=== PATIENT | female | born 1935 | race Hispanic/Latino ===

== ENCOUNTER 2017-07-30 16:11 | Inpatient (IN) | payer SELFPAY ==
[2017-07-30 17:05] LABS: Urine Blood TRACE (NEG); Urine Glucose NEGATIVE (NEG); Urine Protein NEGATIVE (NEG); Urine Specific Gravity 1.015 (1.005-1.030); Urine pH 7.5 (5.0-7.0)
[2017-07-30 17:18] LABS: Absolute Lymphocytes (CBC) 1.2 K/uL (0.7-4.9); Absolute Monocytes 0.6 K/uL (0.1-1.3); Absolute Neutrophil 5.2 K/uL (1.8-8.0); Eosinophils % 1.6 % (0-4.4); Hematocrit 37.2 % (36.0-45.0); Lymphocytes % 16.6 % (15.3-44.8); MCH 30.5 pg (27.0-35.0); MCV 90.6 fL (80-100); MPV 8.8 fL (7.6-11.3); Monocytes % 8.5 % (3.3-12.3); RBC Red Blood Cell Count 4.11 M/uL (3.86-4.86)
[2017-07-30 17:24] LABS: Protime INR 0.98
[2017-07-30 17:28] LABS: Potassium 3.8 mEq/L (3.6-5.0)
[2017-07-30 17:34] LABS: Albumin 4.3 g/dL (3.2-5.5); Bilirubin Direct 0.1 mg/dL (0-0.2); Bilirubin Total 0.3 mg/dL (0.3-1.2); Magnesium 1.7 mg/dL (1.8-2.5); Protein, Total 7.1 g/dL (6.0-8.3)
[2017-07-30 17:53] LABS: Urine Bacteria LOADED /HPF (<20); Urine Culture Reflex Order REFLEXED; Urine RBC <5 /HPF (NONE SEEN)
[2017-07-30] MEDS ORDERED: NA CHLORIDE 0.9% 50 ML IV ONE (17:58)
[2017-07-30] MEDS ORDERED: CEFTRIAXONE/SWI 1gm 1 GM/10 ML SYR ONE (17:58)
[2017-07-30] MEDS ORDERED: ACETAMINOPHEN 325 MG TABLET ONE (18:14)
--- NOTE | 2017-07-30 18:21 | ER ---
Nurse's Notes [facility] Name: Augustina Bonds Age: 82 yrs Sex: Female : 1935 Arrival Date: 07/30/2017 Time: 16:15 Bed 24 Private MD: Diagnosis: Complicated UTI;Syncope Presentation: 07/30 16:15 Presenting complaint: EMS states: Patient reports that she got up about an hour ago and kr2 felt weak and dizzy. She walked to the bathroom and after getting up from the toilet, felt weaker and dizzier. When walking from the bathroom to the kitchen she says she passed out. She was very anxious when we arrived. EKG showed normal sinus rhythm, blood pressure 160/69, pulse 80. Blood glucose 169. Oxygen saturation 100% on 2 LPM via NC. Transition of care: patient was not received from another setting of care. Onset of symptoms was July 30, 2017 at 15:15. Initial Sepsis Screen: Does the patient meet any 2 criteria? No. Patient's initial sepsis screen is negative. Does the patient have a suspected source of infection? No. Patient's initial sepsis screen is negative. Care prior to arrival: IV initiated. 20 GA, in the left antecubital area, Glucose check: 169 Oxygen administered. via nasal cannula. 16:15 Method Of Arrival: EMS: [facility] kr2 16:15 Acuity: JASON 3 kr2 Triage Assessment: 16:33 General: Appears in no apparent distress. comfortable, well groomed, well developed, kr2 well nourished, Behavior is calm, cooperative. Pain: Denies pain. Historical: - Allergies: 16:33 No Known Allergies; kr2 - Home Meds: 16:33 None [Active]; kr2 - PMHx: 16:33 None; kr2 - PSHx: 16:33 None; kr2 - Immunization history:: Adult Immunizations unknown. - Social history:: Smoking status: Patient/guardian denies using tobacco. Screenin:33 Abuse screen: Denies threats or abuse. Denies injuries from another. Nutritional kr2 screening: No deficits noted. Tuberculosis screening: No symptoms or risk factors identified. Fall Risk Fall in past 12 months (25 points). IV access (20 points). Assessment: 16:15 General: Appears in no apparent distress. comfortable, well groomed, well developed, kr2 well nourished, Behavior is calm, cooperative. Pain: Denies pain. Neuro: Level of Consciousness is awake, alert, obeys commands, Oriented to person, place, time, situation, Enterprise Security Architect are equal bilaterally Moves all extremities. Speech is normal, Facial symmetry appears normal, Facial symmetry: tongue is midline, Pupils are PERRLA, Intact Reports dizziness, since This afternoon. Cardiovascular: Reports fatigue, lightheadedness, syncope, Denies chest pain, Capillary refill < 3 seconds in bilateral fingers Patient's skin is warm and dry. Rhythm is sinus rhythm. Respiratory: Airway is patent Respiratory effort is even, unlabored, Respiratory pattern is regular, symmetrical. GI: Abdomen is flat, non-distended. : Denies burning with urination. EENT: Oral mucosa is dry. Derm: Skin is intact, with poor turgor Skin is pink, warm \\T\\ dry. Musculoskeletal: Circulation, motion, and sensation intact. 17:00 Reassessment: Patient appears in no apparent distress at this time. Patient and/or kr2 family updated on plan of care and expected duration. Pain level reassessed. Patient is alert, oriented x 3, equal unlabored respirations, skin warm/dry/pink. Patient denies pain at this time. 18:18 Reassessment: Patient appears in no apparent distress at this time. Patient and/or kr2 family updated on plan of care and expected duration. Pain level reassessed. Patient is alert, oriented x 3, equal unlabored respirations, skin warm/dry/pink. Patient reports she has "a little bit of a headache" Dr. Montejo notified, Tylenol given as ordered. 19:00 Reassessment: Patient appears in no apparent distress at this time. Patient and/or kr2 family updated on plan of care and expected duration. Pain level reassessed. Patient is alert, oriented x 3, equal unlabored respirations, skin warm/dry/pink. 20:08 Reassessment: Patient appears in no apparent distress at this time. Patient and/or kr2 family updated on plan of care and expected duration. Pain level reassessed. Patient is alert, oriented x 3, equal unlabored respirations, skin warm/dry/pink. States headache is gone Patient denies pain at this time. Vital Signs: 16:15 BP 158 / 78; Pulse 68; Resp 19; Temp 97.9(O); Pulse Ox 100% on R/A; Weight 54.43 kg; ss Pain 0/10; 17:32 BP 148 / 67 Supine; Pulse 70; kr2 17:33 BP 160 / 74 Standing; Pulse 80; kr2 17:33 BP 145 / 71 Sitting; Pulse 70; kr2 18:39 BP 133 / 78; Pulse 67; Resp 16; Pulse Ox 100% on R/A; kr2 20:10 BP 122 / 72; Pulse 67; Resp 19; Pulse Ox 97% on R/A; kr2 21:16 BP 126 / 73; Pulse 60; Resp 15; Temp 98.7(O); Pulse Ox 100% on R/A; kr2 17:33 Reports feeling very weak upon standing kr2 Vitals: 18:39 Cardiac Rhythm Assessment Regular Sinus rhythm. kr2 ED Course: 16:15 Patient arrived in ED. ss 16:15 Arm band placed on right wrist. ss 16:15 Patient has correct armband on for positive identification. Bed in low position. Call kr2 light in reach. Side rails up X2. Adult w/ patient. long term care social worker on. Pulse ox on. NIBP on. Door closed. Warm blanket given. Head of bed elevated. 16:27 Blanka Smith, ELISABET is Primary Nurse. kr2 16:31 EKG done, by ED staff, reviewed by Russell Montejo MD. dh3 16:32 Triage completed. kr2 16:35 Maintain EMS IV. Dressing intact. Good blood return noted. Site clean \\T\\ dry. Gauge \\T\\ kr 2 site: 20 gauge LAC. Flushed left saline lock with 2 ml normal saline. 16:42 Russell Montejo MD is Attending Physician. ps1 17:00 Urine collected: clean catch specimen, cloudy, strong, foul odor. kr2 18:20 Damian Concepcion MD is Hospitalizing Provider. ps1 21:36 No provider procedures requiring assistance completed. Patient admitted, IV remains in kr2 place. Administered Medications: 18:02 Drug: Rocephin - (cefTRIAXone) 1 grams Route: IVPB; Infused Over: 30 mins; Site: left kr2 antecubital; 18:17 Follow up: Response: No adverse reaction; IV Status: Completed infusion kr2 18:18 Drug: Tylenol 650 mg Route: PO; kr2 20:09 Follow up: Response: No adverse reaction; Pain is decreased kr2 Point of Care Testing: Blood Glucose: 16:31 Blood Glucose: 155 mg/dL; dh3 Ranges: Outcome: 18:20 Decision to Hospitalize by Provider. ps1 21:37 Admitted to Tele accompanied by tech, family with patient, via wheelchair, room 206, kr2 with chart, Report called to [facility] 21:37 Condition: stable 21:37 Instructed on the need for admit, Demonstrated understanding of instructions. 21:38 Patient left the ED. kr2 Signatures: Bonnie Ramirez, RN RN Nicole Mtz 3 Blanka Smith RN RN kr2 Russell Montejo MD MD ps1
--- NOTE | 2017-07-30 18:21 | EDPHYS ---
Physician Documentation [facility] Name: Augustina Bonds Age: 82 yrs Sex: Female : 1935 Arrival Date: 07/30/2017 Time: 16:15 Bed 24 Private MD: ED Physician Russell Montejo HPI: 07/30 17:55 This 82 yrs old Female presents to ER via EMS with complaints of generalized ps1 fatigue. 17:55 Onset: The symptoms/episode began/occurred 2 week(s) ago. Context: occurred at home. ps1 Associated signs and symptoms: Pertinent positives: syncope, Pertinent negatives: confusion. Patient's baseline: Neuro: alert and fully oriented, Motor: no deficits, Ambulation: walks without assistance. felt extremely weak today and got up from using the bathroom and was walking into the kitchen and she felt faint and then fell on the floor called out and a bystander assisted her off the floor. No urinary symptoms, CP, tightness, pressure. . Historical: - Allergies: 16:33 No Known Allergies; kr2 - Home Meds: 16:33 None [Active]; kr2 - PMHx: 16:33 None; kr2 - PSHx: 16:33 None; kr2 - Immunization history:: Adult Immunizations unknown. - Social history:: Smoking status: Patient/guardian denies using tobacco. ROS: 17:55 Eyes: Negative for injury, pain, redness, and discharge, Cardiovascular: Negative for ps1 chest pain, palpitations, and edema, Respiratory: Negative for shortness of breath, cough, wheezing, and pleuritic chest pain, Abdomen/GI: Negative for abdominal pain, nausea, vomiting, diarrhea, and constipation, Back: Negative for injury and pain, : Negative for injury, bleeding, discharge, and swelling, Skin: Negative for injury, rash, and discoloration. 17:55 Neuro: Negative for headache, weakness, numbness, tingling, and seizure. 17:55 Constitutional: Positive for fatigue, malaise. 17:55 Neuro: Exam: 17:59 Constitutional: This is a well developed, well nourished patient who is awake, alert, ps1 and in no acute distress. Head/Face: Normocephalic, atraumatic. Eyes: Pupils equal round and reactive to light, extra-ocular motions intact. Lids and lashes normal. Conjunctiva and sclera are non-icteric and not injected. ENT: Nares patent. No nasal discharge, no septal abnormalities noted. Tympanic membranes are normal and external auditory canals are clear. Oropharynx with no redness, swelling, or masses, exudates, or evidence of obstruction, uvula midline. Mucous membranes moist. Chest/axilla: Normal chest wall appearance and motion. Nontender with no deformity. No lesions are appreciated. Cardiovascular: Regular rate and rhythm. No gallops, murmurs, or rubs. Normal PMI, no JVD. No pulse deficits. Respiratory: Lungs have equal breath sounds bilaterally, clear to auscultation and percussion. No rales, rhonchi or wheezes noted. No increased work of breathing, no retractions or nasal flaring. Abdomen/GI: Soft, non-tender, with normal bowel sounds. No distension or tympany. No guarding or rebound. No evidence of tenderness throughout. Skin: Warm, dry with normal turgor. Normal color with no rashes, no lesions, and no evidence of cellulitis. MS/ Extremity: Pulses equal, no cyanosis. Neurovascular intact. Full, normal range of motion. Neuro: Awake and alert, GCS 15, oriented to person, place, time, and situation. Cranial nerves II-XII grossly intact. Sensory grossly intact. Vital Signs: 16:15 BP 158 / 78; Pulse 68; Resp 19; Temp 97.9(O); Pulse Ox 100% on R/A; Weight 54.43 kg; ss Pain 0/10; 17:32 BP 148 / 67 Supine; Pulse 70; kr2 17:33 BP 160 / 74 Standing; Pulse 80; kr2 17:33 BP 145 / 71 Sitting; Pulse 70; kr2 18:39 BP 133 / 78; Pulse 67; Resp 16; Pulse Ox 100% on R/A; kr2 20:10 BP 122 / 72; Pulse 67; Resp 19; Pulse Ox 97% on R/A; kr2 21:16 BP 126 / 73; Pulse 60; Resp 15; Temp 98.7(O); Pulse Ox 100% on R/A; kr2 17:33 Reports feeling very weak upon standing kr2 MDM: 17:10 Patient medically screened. ps1 18:33 Data reviewed: vital signs, nurses notes. ps1 07/30 16:34 Order name: Glucose, Ancillary Testing; Complete Time: 17:10 EDMS 07/30 16:53 Order name: Basic Metabolic Panel; Complete Time: 17:41 ps1 07/30 16:53 Order name: BNP; Complete Time: 17:51 ps1 07/30 16:53 Order name: CBC with Diff; Complete Time: 17:22 ps1 07/30 16:53 Order name: Hepatic Function; Complete Time: 17:41 ps1 07/30 16:53 Order name: Magnesium; Complete Time: 17:41 [facility] 07/30 16:53 Order name: Protime (+inr); Complete Time: 17:26 ps1 07/30 16:53 Order name: Ptt, Activated; Complete Time: 17:26 [facility] 07/30 16:53 Order name: Troponin (emerg Dept Use Only); Complete Time: 17:41 [facility] 07/30 17:04 Order name: Urine Dipstick--Ancillary (enter results); Complete Time: 17:10 07/30 17:19 Order name: Urine Microscopic Only; Complete Time: 17:54 [facility] 07/30 17:54 Order name: Urine Culture [facility] 07/30 16:53 Order name: EKG; Complete Time: 16:54 ps1 07/30 16:53 Order name: Cardiac monitoring; Complete Time: 16:54 [facility] 07/30 16:53 Order name: EKG - Nurse/Tech; Complete Time: 16:54 [facility] 07/30 16:53 Order name: IV Saline Lock; Complete Time: 17:02 [facility] 07/30 16:53 Order name: Labs collected and sent; Complete Time: 17:18 [facility] 07/30 16:53 Order name: NPO; Complete Time: 17:02 [facility] 07/30 16:53 Order name: O2 Per Protocol; Complete Time: 16:54 [facility] 07/30 16:53 Order name: O2 Sat Monitoring; Complete Time: 16:54 [facility] 07/30 16:53 Order name: Urine Dipstick-Ancillary (obtain specimen); Complete Time: 17:18 [facility] 07/30 16:53 Order name: Orthostatic Blood Pressure; Complete Time: 17:36 ps1 Administered Medications: 18:02 Drug: Rocephin - (cefTRIAXone) 1 grams Route: IVPB; Infused Over: 30 mins; Site: left kr2 antecubital; 18:17 Follow up: Response: No adverse reaction; IV Status: Completed infusion kr2 18:18 Drug: Tylenol 650 mg Route: PO; kr2 20:09 Follow up: Response: No adverse reaction; Pain is decreased kr2 Point of Care Testing: Blood Glucose: 16:31 Blood Glucose: 155 mg/dL; dh3 Ranges: Critical Glucose Levels:Adult <50 mg/dl or >400 mg/dl <40 mg/dl or >180 mg/dl Disposition: 07/30/17 18:20 Hospitalization ordered by Damian Concepcion for Inpatient Admission. Preliminary diagnosis are Complicated UTI, Syncope. - Bed requested for Telemetry/MedSurg (Inpatient). - Status is Inpatient Admission. kr2 - Condition is Stable. - Problem is new. - Symptoms are unchanged. UTI on Admission? Yes Signatures: Dispatcher [employer] EDMegha Lowe RN RN kl Reaves, Karey, RN RN kr2 Russell Montejo MD MD ps1 Botello, Elizabeth eb
--- NOTE | 2017-07-30 21:06 | P.HP ---
Certification for Inpatient Patient admitted to: Inpatient With expected LOS: >2 Midnights Practitioner: I am a practitioner with admitting privileges, knowledge of patient current condition, hospital course, and medical plan of care. Services: Services provided to patient in accordance with Admission requirements found in Title 42 Section 412.3 of the Code of Federal Regulations Patient History Date of Service: 07/30/17 Reason for admission: weakness, UTI History of Present Illness: Ms Bonds is an 82 years old woman with pretty benign medical history, who started about 7 days ago with progressive weakness. She denied any abdominal pain, SOB, chest pain, nausea, vomiting or diarrhea. Today, after have lunch, she start feeling full, and try to go to the bathroom to throw up, however on the way she start feeling dizzy, and after that, does not remember how she managed to go to the couch. No history of fever or chills. No cough or burning urination either. In ED WBC count are normal, creatinine mildly elevated, UA abnormal consistent with UTI. Allergies No Known Allergies Allergy (Unverified 07/30/17 20:25) - Past Medical/Surgical History Past Medical History: Reviewed- Non-Contributory Past Surgical History: Reviewed- Non-Contributory - Social History Smoking Status: Former smoker Alcohol use: No CD- Drugs: No Place of Residence: Home Review of Systems 10-point ROS is otherwise unremarkable Physical Examination - Physical Exam General: Alert, In no apparent distress HEENT: Atraumatic, PERRLA, Mucous membr. moist/pink, EOMI, Sclerae nonicteric Neck: Supple, 2+ carotid pulse no bruit, No LAD, Without JVD or thyroid abnormality Respiratory: Clear to auscultation bilaterally, Normal air movement Cardiovascular: Regular rate/rhythm, Normal S1 S2 Gastrointestinal: Normal bowel sounds, No tenderness Musculoskeletal: No tenderness Integumentary: No rashes Neurological: Normal speech, Normal strength at 5/5 x4 extr, Normal tone, Normal affect Lymphatics: No axilla or inguinal lymphadenopathy - Studies Laboratory Data (last 24 hrs) 07/30/17 17:10: PT 11.6, INR 0.98, APTT 30.2 07/30/17 17:10: WBC 7.2, Hgb 12.5, Hct 37.2, Plt Count 220 07/30/17 17:10: B-Natriuretic Peptide 07/30/17 17:10: Sodium 139, Potassium 3.8, BUN 18, Creatinine 1.09 H, Glucose 105, Magnesium 1.7 L, Total Bilirubin 0.3, AST 23, ALT 17, Alkaline Phosphatase 82 Assessment and Plan - Problems (Diagnosis) (1) Generalized weakness Current Visit: Yes Status: Acute (2) UTI (urinary tract infection) Current Visit: Yes Status: Acute Qualifiers: Urinary tract infection type: acute cystitis Hematuria presence: without hematuria Qualified Code(s): N30.00 - Acute cystitis without hematuria (3) Volume depletion Current Visit: Yes Status: Acute - Plan Ms Bonds will be admitted to the hospital due to generalized weakness in context of UTI and volume depletion. Will start IV fluids, and empiric antibiotic treatment. Urine culture in process. Consult PT to evaluate safety ambulation. - Advance Directives Does patient have a Living Will: No Does patient have a Durable POA for Healthcare: No - Code Status/Comfort Care Code Status Assessed: Yes Code Status: Full Code
[2017-07-30] MEDS ORDERED: ONDANSETRON 4 MG/2 ML VIAL IV PRN (21:20)
[2017-07-30] MEDS ORDERED: ACETAMINOPHEN 500 MG TAB PO PRN (21:20)
[2017-07-30] MEDS ORDERED: MAGNESIUM SULFATE 1 gm IVPB 1 GM/100 ML BAG IV ONE (21:25)
[2017-07-30] MEDS ORDERED: POTASSIUM 25 MEQ EFFERV TAB PO ONE (21:26)
[2017-07-30] MEDS: NA CHLORIDE 0.9% 1,000 ML IV SCH (22:25)
[2017-07-31 05:07] LABS: Absolute Lymphocytes (CBC) 1.9 K/uL (0.7-4.9); Absolute Monocytes 0.6 K/uL (0.1-1.3); Absolute Neutrophil 3.3 K/uL (1.8-8.0); Basophils % 0.9 % (0-1.3); Eosinophils % 2.7 % (0-4.4); Hematocrit 31.4 % (36.0-45.0); Lymphocytes % 31.9 % (15.3-44.8); MCH 31.4 pg (27.0-35.0); MCV 88.9 fL (80-100); MPV 9.1 fL (7.6-11.3); Monocytes % 9.5 % (3.3-12.3); RBC Red Blood Cell Count 3.54 M/uL (3.86-4.86)
[2017-07-31 05:25] LABS: Magnesium 1.9 mg/dL (1.8-2.5); Potassium 4.3 mEq/L (3.6-5.0)
--- NOTE | 2017-07-31 06:13 | EKG ---
Test Date: 2017-07-30 Test Time: 16:23:42 Claims Counsel: NICK MEASUREMENT RESULTS: Intervals: Rate: 75 SD: 156 QRSD: 84 QT: 380 QTc: 424 Donahue: P: 59 SD: 156 QRS: -34 T: 41 INTERPRETIVE STATEMENTS: Normal sinus rhythm Left axis deviation Abnormal ECG No previous ECG available for comparison Electronically Signed On 07-31-17 06:12:45 CDT by Kamari Bell
[2017-07-31] MEDS ORDERED: CEFTRIAXONE 1 GM/NS 50 ML 1 GM/50 ML BAG IV SCH (09:00)
[2017-07-31] MEDS: NA CHLORIDE 0.9% 1,000 ML IV SCH ×2 (09:41→18:35)
[2017-07-31] MEDS: CEFTRIAXONE/SWI 1gm 1 GM/10 ML SYR IVP SCH (09:42)
[2017-07-31] MEDS: ENOXAPARIN 40 MG/0.4 ML SQ SCH (09:42)
--- NOTE | 2017-07-31 17:44 | PN ---
Date of Progress Note: 07/31/2017 Subjective: The patient seen and examined. Chart reviewed and case discussed with RN. [facility]. All questions answered. The patient feels significantly better. She was able to work with PT and walk around the hallway. Review of Systems: Negative except as above. Medications: Reviewed. Physical Examination: Vital Signs: Temperature 98, heart rate 68, blood pressure 129/60, respirations 20, O2 95% on room a ir. General: Awake, alert, oriented x3, in no acute distress, slightly ill-appearing elderly female, cac hectic. BMI 20. CV: S1, S2. No murmurs. Regular rate and rhythm. Peripheral pulses present bilaterally. Respiratory: Moving air well bilaterally. No wheezing. No stridor. No use of accessory muscles. Gastrointestinal: Abdomen is soft, nontender, nondistended. Positive bowel sounds. No guarding or rigidity. Extremities: No clubbing, cyanosis, edema. Neurologic: Nonfocal. Laboratory Data: Sodium 136, potassium 4.3, chloride 110, CO2 24, BUN 19, creatinine 0.82, glucose 8 5, magnesium 1.9. WBC 6, H and H 11.1 and 31.4, platelets 199. Urine culture pending. Assessment And Plan: An 82-year-old female with; 1.Generalized weakness, improved. We will continue PT evaluation and IV fluids. 2.Urinary tract infection, acute cystitis without hematuria. Urine culture is pending. We will con tinue with IV antibiotics. 3.Volume depletion. Continue IV fluids. 4.Hypertension. The patient currently normotensive. We will hold blood pressure medication for now . Son stated that the patient has been having some side effect from the blood pressure medication. The patient may need to have blood pressure medication dose reduced when going home. 5.Insomnia. We will start on melatonin. 6.GI and DVT prophylaxis, PPI and Lovenox. Plan: Continue IV fluids and antibiotics. Follow up on urine culture. Discharge in a.m. if continu es to improve and if physical therapy recommends home PT, we will set it up. /ARIADNE Voice ID: [id number] Report ID: [id number]
[2017-07-31] MEDS ORDERED: MELATONIN 5 MG TABLET PO SCH (21:00)
[2017-07-31] MEDS: RANITIDINE 150 MG TABLET PO SCH (21:08)
[2017-08-01] MEDS: NA CHLORIDE 0.9% 1,000 ML IV SCH (04:45)
[2017-08-01] MEDS ORDERED: LISINOPRIL 10 MG TAB PO SCH (09:00)
[2017-08-01] MEDS ORDERED: HOME MED 1 EA UNK (Lisinopril/Hydrochlorothiazide [Lisinopril-Hctz 10-12.5 Mg Tab] 1 TAB) PO SCH (09:00)
[2017-08-01] MEDS ORDERED: hydroCHLOROthiazide 12.5 MG CAP PO SCH (09:00)
[2017-08-01] MEDS: ENOXAPARIN 40 MG/0.4 ML SQ SCH (10:17)
[2017-08-01] MEDS: CEFTRIAXONE/SWI 1gm 1 GM/10 ML SYR IVP SCH (10:17)
[2017-08-01] MEDS: RANITIDINE 150 MG TABLET PO SCH (10:18)
--- NOTE | 2017-08-01 11:12 | P.DS ---
Admission Date: 07/30/17 Discharge Date: 08/01/17 Disposition: ROUTINE DISCHARGE Discharge Condition: GOOD Reason for Admission: weakness, UTI - Problems (1) Generalized weakness Onset Date: 08/01/17 Current Visit: Yes Status: Acute (2) UTI (urinary tract infection) Onset Date: 08/01/17 Current Visit: Yes Status: Acute Qualifiers: Urinary tract infection type: acute cystitis Hematuria presence: without hematuria Qualified Code(s): N30.00 - Acute cystitis without hematuria (3) Volume depletion Onset Date: 08/01/17 Current Visit: Yes Status: Acute Brief History of Present Illness: Ms Bonds is an 82 years old woman with pretty benign medical history, who started about 7 days ago with progressive weakness. She denied any abdominal pain, SOB, chest pain, nausea, vomiting or diarrhea. Today, after have lunch, she start feeling full, and try to go to the bathroom to throw up, however on the way she start feeling dizzy, and after that, does not remember how she managed to go to the couch. No history of fever or chills. No cough or burning urination either. In ED WBC count are normal, creatinine mildly elevated, UA abnormal consistent with UTI. Hospital Course: The patient was admitted to the hospital due to near syncope episode in context of UTI. She treated with IV Rocephin, received IV fluids, and gradually improved her condition. She is walking without difficulty, and has good appetite. Urine culture is positive for gram negative rods, still final result is pending, however, since the patient has had a tremendous clinical improvement , will be discharged home with oral Cipro for 5 more days. F/U with PCP within 1 week. Vital Signs/Physical Exam: Temp Pulse Resp BP Pulse Ox 97.0 F 54 16 147/67 H 98 08/01/17 08:00 08/01/17 10:18 08/01/17 08:00 08/01/17 10:18 08/01/17 08:00 Laboratory Data at Discharge: WBC 6.0 K/uL (4.3-10.9) D 07/31/17 04:29 Hgb 11.1 g/dL (12.0-15.0) L 07/31/17 04:29 Hct 31.4 % (36.0-45.0) L D 07/31/17 04:29 Plt Count 199 K/uL (152-406) 07/31/17 04:29 PT 11.6 SECONDS (9.5-12.5) 07/30/17 17:10 INR 0.98 07/30/17 17:10 APTT 30.2 SECONDS (24.3-36.9) 07/30/17 17:10 Sodium 136 mEq/L (135-145) 07/31/17 04:29 Potassium 4.3 mEq/L (3.6-5.0) 07/31/17 04:29 BUN 19 mg/dL (6-20) 07/31/17 04:29 Creatinine 0.82 mg/dL (0.44-1.00) 07/31/17 04:29 Glucose 95 mg/dL (65-120) 07/31/17 04:29 Magnesium 1.9 mg/dL (1.8-2.5) 07/31/17 04:29 Total Bilirubin 0.3 mg/dL (0.3-1.2) 07/30/17 17:10 AST 23 IU/L (10-42) 07/30/17 17:10 ALT 17 IU/L (10-60) 07/30/17 17:10 Alkaline Phosphatase 82 IU/L (42-121) 07/30/17 17:10 B-Natriuretic Peptide 21 pg/ml (<=100) 07/30/17 17:10 Home Medications: Lisinopril/Hydrochlorothiazide [Lisinopril-Hctz 10-12.5 mg Tab] 1 tab PO DAILY 07/31/17 Ciprofloxacin HCl [Cipro 500 MG Tablet] 500 mg PO BID #10 tab 08/01/17 New Medications: Ciprofloxacin HCl [Cipro 500 MG Tablet] 500 mg PO BID #10 tab Patient Discharge Instructions: folow up with PCP this week. Urine cutlure pending final result, needs follow up by PCP. Diet: Low sodium Activity: Fall precautions
== END 2017-08-01 12:00 | disposition home or self-care (01) | DRG 690 ==
LOC: EDBD 16:11 → ER 16:11 → ERHOLD 18:37 → 2ND 21:11
PROVIDERS: ADMIT Internal Medicine; ATTEND Internal Medicine
DX: N30.00 Acute cystitis without hematuria (principal); B96.89 Other specified bacterial agents as the cause of diseases classified elsewhere; E86.9 Volume depletion, unspecified; R42 Dizziness and giddiness; R53.1 Weakness; I10 Essential (primary) hypertension; G47.00 Insomnia, unspecified; R55 Syncope and collapse
CPT/HCPCS: 36415; 80048; 80076; 81003; 81015; 82962; 83735; 83880; 84484; 85025; 85610; 85730; 87077; 87086; 87088; 87186; 93005; 96374; 97163; 99285; J0696; J1650; J3475; J7030

== ENCOUNTER 2021-01-20 12:01 | Emergency (ER) | payer SELFPAY ==
[2021-01-20 13:01] LABS: Absolute Lymphocytes (CBC) 1.8 K/uL (0.7-4.9); Lymphocytes % 18.6 % (15.3-44.8); MPV 9.1 fL (7.6-11.3); RBC Red Blood Cell Count 4.23 M/uL (3.86-4.86)
[2021-01-20 13:03] LABS: Bilirubin Direct 0.1 mg/dL (0-0.2); Bilirubin Total 0.5 mg/dL (0.2-1.0); Potassium 4.2 mmol/L (3.5-5.1); Protein, Total 7.9 g/dL (6.4-8.2)
[2021-01-20] MEDS ORDERED: NA CHLORIDE 0.9% 50 ML ONE (13:21)
[2021-01-20] MEDS ORDERED: CEFTRIAXONE 1000 MG/VIAL ONE (13:21)
[2021-01-20] MEDS ORDERED: ONDANSETRON 4 MG/2 ML VIAL ONE (13:34)
[2021-01-20] MEDS ORDERED: MORPHINE 2 MG/ML SYR ONE (13:34)
[2021-01-20 15:32] LABS: Urine Blood Trace-intact (Negative); Urine Glucose Negative (Negative); Urine Protein Negative (Negative); Urine Specific Gravity 1.015 (1.005-1.030)
--- NOTE | 2021-01-20 15:38 | ER ---
Nurse's Notes [facility] Name: Augustina Bonds Age: 85 yrs Sex: Female : 1935 Arrival Date: 01/20/2021 Time: 12:02 Bed 5 Private MD: Diagnosis: Acute Diverticulitis Presentation: 01/20 12:17 Chief complaint: Patient's son or daughter states: abd pain x 2 week. Fever and chills ss that began 4 days ago with worsening abd pain. Coronavirus screen: chills, Client presents with at least one sign or symptom that may indicate coronavirus-19. Standard/surgical mask placed on the client. Provider contacted for isolation considerations. Ebola Screen: Patient denies exposure to infectious person. Patient denies travel to an Ebola-affected area in the 21 days before illness onset. Initial Sepsis Screen: Does the patient meet any 2 criteria? No. Patient's initial sepsis screen is negative. Does the patient have a suspected source of infection? No. Patient's initial sepsis screen is negative. Risk Assessment: Do you want to hurt yourself or someone else? Patient reports no desire to harm self or others. Onset of symptoms was January 06, 2021. 12:17 Method Of Arrival: Ambulatory ss 12:17 Acuity: JASON 3 ss Historical: - Allergies: 12:21 No Known Allergies; ss - Home Meds: 12:21 None [Active]; ss - PMHx: 12:21 None; ss - PSHx: 12:21 None; ss - Immunization history:: Client reports receiving the 2nd dose of the Covid vaccine. - Social history:: Smoking status: Patient denies any tobacco usage or history of. Screenin:37 Abuse screen: Denies threats or abuse. Denies injuries from another. Nutritional ch5 screening: No deficits noted. Tuberculosis screening: No symptoms or risk factors identified. Fall Risk None identified. Assessment: 12:36 Pain: Complains of pain in abdomen Pain currently is 3 out of 10 on a pain scale. GI: ch5 Reports upper abdominal pain. Vital Signs: 12:17 BP 130 / 88; Pulse 89; Resp 16; Temp 99.0(TE); Pulse Ox 100% on R/A; Pain 10/10; ss 12:30 BP 129 / 82; Pulse 92; Resp 20; Pulse Ox 100% ; ch5 12:30 BP 126 / 55; Pulse 79; Resp 20; Pulse Ox 98% ; Pain 1/10; ch5 ED Course: 12:02 Patient arrived in ED. am2 12:21 Triage completed. ss 12:21 Arm band placed on left wrist. ss 12:24 Jona Madrigal, RN is Primary Nurse. ch5 12:25 Neno Lal PA is PHCP. [facility] 12:25 Saeed Mei MD is Attending Physician. [facility] 12:37 Placed in gown. Bed in low position. Call light in reach. Side rails up X 1. ch5 12:37 No provider procedures requiring assistance completed. Inserted saline lock: 20 gauge ch5 in right antecubital area, using aseptic technique. 14:08 CT Abd/Pelvis - IV Contrast Only In Process Unspecified. EDMS 16:02 IV discontinued, intact. ch5 Administered Medications: 12:58 Drug: Rocephin (cefTRIAXone) 1 grams Route: IV; Rate: calculated rate; Site: right ch5 antecubital; 13:17 Drug: morphine 2 mg Route: IVP; Site: right antecubital; ch5 13:17 Drug: Zofran (Ondansetron) 4 mg Route: IVP; Site: right antecubital; ch5 Outcome: 15:38 Discharge ordered by . [facility] 16:02 Discharged to home ambulatory. ch5 16:02 Condition: good 16:02 Discharge instructions given to patient, family, Instructed on discharge instructions, Prescriptions given X 16:09 Patient left the ED. 5 Signatures: Dispatcher [employer] EDMS Neno Lal PA PA jmm Smirch, Shelby, RN RN Liza Saavedraanda am Jona Madrigal, RN RN 5
--- NOTE | 2021-01-20 15:38 | RAD REPORT ---
EXAM DESCRIPTION: CTAbdomen Pelvis W Contrast - 01/20/2021 3:07 pm CLINICAL HISTORY: ABD PAIN COMPARISON: No comparisons TECHNIQUE: CT of the abdomen and pelvis was performed. All CT scans are performed using dose optimization technique as appropriate and may include automated exposure control or mA/KV adjustment according to patient size. FINDINGS: Lower chest: No acute abnormality. Liver: Low-density lesion hepatic dome is benign imaging features. Other too small to characterize li roberto lesions are statistically benign. Biliary: Cholelithiasis Stomach: No significant focal abnormality. Duodenum: No significant focal abnormality. Pancreas: No significant abnormality. Spleen: No significant abnormality. Adrenal: No suspicious lesions. Kidney/ureter: No hydronephrosis. No renal calculi. Too small to characterize and/or benign appearing renal lesions are noted. Retroperitoneum: No retroperitoneal adenopathy. Vascular: No aneurysm. Atherosclerosis. Bowel: Sigmoid diverticulitis noted without perforation or abscess.. Normal appendix. Peritoneum: No ascites or free air. Bladder: Grossly unremarkable. Reproductive: Calcified uterine fibroid. Bones: No acute fracture. Other: n/a IMPRESSION: Non perforated sigmoid diverticulitis .
--- NOTE | 2021-01-20 15:39 | EDPHYS ---
Physician Documentation [facility] Name: Augustina Bonds Age: 85 yrs Sex: Female : 1935 Arrival Date: 01/20/2021 Time: 12:02 Bed 5 Private MD: ED Physician Saeed Mei HPI: 01/20 15:32 This 85 yrs old Female presents to ER via Ambulatory with complaints of Fever, jmm Chills, Pelvic Pain. 15:32 The patient reports fever, not measured (subjective). Onset: The symptoms/episode jmm began/occurred gradually, 2 week(s) ago. Modifying factors: there are no obvious modifying factors. Associated signs and symptoms: Pertinent positives: abdominal pain. Historical: - Allergies: 12:21 No Known Allergies; ss - Home Meds: 12:21 None [Active]; ss - PMHx: 12:21 None; ss - PSHx: 12:21 None; ss - Immunization history:: Client reports receiving the 2nd dose of the Covid vaccine. - Social history:: Smoking status: Patient denies any tobacco usage or history of. ROS: 15:32 Constitutional: Positive for fever. jmm 15:32 Abdomen/GI: Positive for abdominal pain. 15:32 All other systems are negative. Exam: 15:32 Constitutional: This is a well developed, well nourished patient who is awake, alert, jmm and in no acute distress. Head/Face: atraumatic. Eyes: EOMI, no conjunctival erythema appreciated ENT: Moist Mucus Membranes Neck: Trachea midline, Supple Chest/axilla: Normal chest wall appearance and motion. Cardiovascular: Regular rate and rhythm. No edema appreciated Respiratory: Normal respirations, no respiratory distress appreciated Back: Normal ROM 15:32 Skin: General appearance color normal MS/ Extremity: Moves all extremities, no obvious deformities appreciated, no edema noted to the lower extremities Neuro: Awake and alert, normal gait Psych: Behavior is normal, Mood is normal, Patient is cooperative and pleasant 15:32 Abdomen/GI: Inspection: abdomen appears normal, Bowel sounds: Palpation: soft, mild abdominal tenderness, in the suprapubic area and left lower quadrant. Vital Signs: 12:17 BP 130 / 88; Pulse 89; Resp 16; Temp 99.0(TE); Pulse Ox 100% on R/A; Pain 10/10; ss 12:30 BP 129 / 82; Pulse 92; Resp 20; Pulse Ox 100% ; ch5 12:30 BP 126 / 55; Pulse 79; Resp 20; Pulse Ox 98% ; Pain 1/10; ch5 MDM: 12:31 Patient medically screened. [facility] 15:34 Data reviewed: vital signs, nurses notes. Counseling: I had a detailed discussion with [facility] the patient and/or guardian regarding: the historical points, exam findings, and any diagnostic results supporting the discharge/admit diagnosis, lab results, radiology results, the need for outpatient follow up, smoking cessation. ED course: Patient is alert and nontoxic in appearance in the ED. Patient does have a preference to go home with oral antibiotics. Patient was given strict return precautions. Patient understood and agrees plan of care.. 01/20 12:27 Order name: Basic Metabolic Panel; Complete Time: 13:04 [facility] 01/20 12:27 Order name: CBC with Diff; Complete Time: 13:03 [facility] 01/20 12:27 Order name: Hepatic Function; Complete Time: 13:04 [facility] 01/20 12:27 Order name: Lipase; Complete Time: 13:04 [facility] 01/20 12:27 Order name: Urine Culture [facility] 01/20 12:48 Order name: Procalcitonin; Complete Time: 15:27 [facility] 01/20 12:27 Order name: IV Saline Lock; Complete Time: 12:37 [facility] 01/20 12:48 Order name: Lactate; Complete Time: 13:51 [facility] 01/20 12:48 Order name: Blood Culture Adult (2) [facility] 01/20 13:52 Order name: CT Abd/Pelvis - IV Contrast Only [facility] 01/20 15:32 Order name: Urine Dipstick-Ancillary [facility] 01/20 12:27 Order name: Labs collected and sent; Complete Time: 12:38 [facility] Administered Medications: 12:58 Drug: Rocephin (cefTRIAXone) 1 grams Route: IV; Rate: calculated rate; Site: right ch5 antecubital; 13:17 Drug: morphine 2 mg Route: IVP; Site: right antecubital; ch5 13:17 Drug: Zofran (Ondansetron) 4 mg Route: IVP; Site: right antecubital; ch5 Disposition: 22:54 Co-signature as Attending Physician, Saeed Mei MD I agree with the assessment and kdr plan of care. Disposition Summary: 01/20/21 15:38 Discharge Ordered Location: Home [facility] Condition: Stable [facility] Diagnosis - Acute Diverticulitis [facility] Followup: [facility] - With: Private Physician - When: 2 - 3 days - Reason: Recheck today's complaints, Continuance of care, Re-evaluation by your physician Discharge Instructions: - Discharge Summary Sheet [facility] - Diverticulitis [facility] Forms: - Medication Reconciliation Form [facility] - Thank You Letter [facility] - Antibiotic Education [facility] - Prescription Opioid Use [facility] Prescriptions: - Cipro 500 mg Oral Tablet - take 1 tablet by ORAL route every 12 hours for 10 days; 20 tablet; Refills: 0, [facility] Product Selection Permitted - Flagyl 500 mg Oral Tablet - take 1 tablet by ORAL route every 6 hours for 10 days; 40 tablet; Refills: 0, [facility] Product Selection Permitted Signatures: Dispatcher [employer] [facility] Saeed Mei MD MD [facility] Neno Lal PA PA [facility] Bonnie Ramirez, RN RN Jona Madrigal RN RN ch5
[2021-01-20 16:30] VITALS: TEMP 99
[2021-01-20 16:31] VITALS: BP 126/55; O2SAT 98
== END 2021-01-20 16:09 | disposition home or self-care (01) ==
LOC: ER 12:01
DX: K57.32 Diverticulitis of large intestine without perforation or abscess without bleeding (principal)
CPT/HCPCS: 36415; 74177; 80048; 80076; 81003; 83605; 83690; 84145; 85025; 87040; 87086; 87088; J2270; J2405; Q9967

== ENCOUNTER 2021-12-31 16:46 | Emergency (ER) | payer SELFPAY ==
[2021-12-31 18:11] LABS: Absolute Lymphocytes (CBC) 1.5 K/uL (0.7-4.9); Lymphocytes % 17.6 % (15.3-44.8); MCV 91.9 fL (80-100); MPV 8.6 fL (7.6-11.3); RBC Red Blood Cell Count 4.02 M/uL (3.86-4.86)
[2021-12-31 18:15] LABS: Protime INR 1.01
[2021-12-31 18:34] LABS: ALT/SGPT 42 U/L (12-78); AST/SGOT 23 U/L (15-37); Albumin 3.6 g/dL (3.4-5.0); Alkaline Phosphatase 107 U/L (45-117); BUN Blood Urea Nitrogen 10 mg/dL (7-18); Bicarbonate 27 mmol/L (21-32); Bilirubin Total 0.3 mg/dL (0.2-1.0); Glomerular Filtration Rate 82 ml/min (=/>90); Glucose Level 106 mg/dL (74-106); Magnesium 2.3 mg/dL (1.8-2.4); NT PRO-BNP 103 pg/mL (<450); Potassium 4.1 mmol/L (3.5-5.1); Sodium Level 137 mmol/L (136-145)
[2021-12-31 18:36] LABS: Bilirubin Direct < 0.1 mg/dL (0-0.2)
--- NOTE | 2021-12-31 19:17 | RAD REPORT ---
EXAM DESCRIPTION: RAD - Chest Single View - 12/31/2021 6:29 pm CLINICAL HISTORY: COUGH COMPARISON: None TECHNIQUE: AP portable chest image was obtained 12/31/2021 6:29 pm . FINDINGS: No focal mass or consolidation. Interstitial pattern is prominent with the baseline for th e patient is unknown. In this setting interstitial edema, infiltrate and scarring can all have a damian lar appearance. Heart and vasculature are normal. No measurable pleural effusion and no pneumothorax. No acute bony abnormality seen. No acute aortic findings suspected. IMPRESSION: Prominent interstitial pattern throughout both lung carreon on this baseline study. No ma ss or consolidations seen. Findings could be fibrosis, interstitial edema, interstitial infiltrate or a combination.
[2021-12-31] MEDS ORDERED: FUROSEMIDE 20 MG TABLET ONE (19:41)
[2021-12-31] MEDS ORDERED: HYDROCODONE/APAP 5/325 MG TAB ONE (19:42)
[2021-12-31 20:16] LABS: Urine Blood Trace-intact (Negative); Urine Glucose Negative (Negative); Urine Protein Negative (Negative); Urine Specific Gravity 1.015 (1.005-1.030)
[2021-12-31 20:30] LABS: Urine RBC <5 /HPF (None Seen)
[2021-12-31] MEDS ORDERED: NA CHLORIDE 0.9% 500 ML ONE (21:33)
--- NOTE | 2021-12-31 23:44 | ER ---
Nurse's Notes [facility] Name: Augustina Bonds Age: 86 yrs Sex: Female : 1935 Arrival Date: 12/31/2021 Time: 16:59 Bed 12 Private MD: Diagnosis: Other malaise and fatigue Presentation: 12/31 17:20 Chief complaint: Patient states: weak and dizzy x 3 days, no fever. SOB and aa5 palpitations. 17:20 Method Of Arrival: Wheelchair aa5 17:22 Coronavirus screen: shortness of breath. Ebola Screen: Patient denies travel to an aa5 Ebola-affected area in the 21 days before illness onset. Initial Sepsis Screen: Does the patient meet any 2 criteria? No. Patient's initial sepsis screen is negative. Does the patient have a suspected source of infection? No. Patient's initial sepsis screen is negative. Risk Assessment: Do you want to hurt yourself or someone else? Patient reports no desire to harm self or others. Onset of symptoms was December 2021. 17:22 Acuity: JASON 3 aa5 Historical: - Allergies: 17:22 No Known Allergies; aa5 - Home Meds: 17:22 None [Active]; aa5 - PMHx: 17:22 None; aa5 - PSHx: 17:22 None; aa5 - Immunization history:: Adult Immunizations unknown. - Social history:: Smoking status: Patient denies any tobacco usage or history of. Screenin:39 Abuse screen: Denies threats or abuse. Denies injuries from another. Nutritional lg3 screening: No deficits noted. Tuberculosis screening: No symptoms or risk factors identified. Fall Risk None identified. Assessment: 19:39 General: Appears in no apparent distress. comfortable, Behavior is calm, cooperative. lg3 Pain: Denies pain. Neuro: No deficits noted. Level of Consciousness is awake, alert, obeys commands, Oriented to person, place, time, situation. Cardiovascular: No deficits noted. Denies chest pain, Capillary refill < 3 seconds Clubbing of nail beds is absent JVD is absent Patient's skin is warm and dry. Respiratory: Reports shortness of breath on exertion Airway is patent Respiratory effort is even, unlabored, Respiratory pattern is regular, symmetrical, Breath sounds are clear bilaterally. GI: No deficits noted. No signs and/or symptoms were reported involving the gastrointestinal system. Abdomen is flat, non-distended, Bowel sounds present X 4 quads. : No deficits noted. No signs and/or symptoms were reported regarding the genitourinary system. EENT: No deficits noted. No signs and/or symptoms were reported regarding the EENT system. Derm: No deficits noted. No signs and/or symptoms reported regarding the dermatologic system. Skin is intact, is thin, Skin is dry, Skin is normal, Skin temperature is warm. Musculoskeletal: Reports generalized weakness. 21:38 Reassessment: Patient appears in no apparent distress at this time. No changes from lg3 previously documented assessment. Patient and/or family updated on plan of care and expected duration. Pain level reassessed. Patient is alert, oriented x 3, equal unlabored respirations, skin warm/dry/pink. 23:02 Reassessment: Patient appears in no apparent distress at this time. No changes from tw5 previously documented assessment. Patient and/or family updated on plan of care and expected duration. Pain level reassessed. Patient is alert, oriented x 3, equal unlabored respirations, skin warm/dry/pink. Vital Signs: 17:22 BP 135 / 75; Pulse 72; Resp 18 S; Temp 97.1(TE); Pulse Ox 96% on R/A; aa5 23:02 BP 169 / 63 LA Supine (auto/pedi); Pulse 61 MON; ds4 23:05 BP 185 / 79 LA Sitting (auto/pedi); Pulse 66 MON; ds4 23:08 BP 184 / 73; Pulse 71 MON; ds4 ED Course: 16:59 Patient arrived in ED. am2 17:17 Josey Navarro FNP-C is PHCP. snw 17:17 Marc Moon MD is Attending Physician. snw 17:22 Triage completed. aa5 17:22 Arm band placed on. aa5 18:00 Initial lab(s) drawn, by me, sent to lab. COVID swab sent to lab. Flu and/or RSV swab aa5 sent to lab. Inserted saline lock: 22 gauge in right forearm, using aseptic technique. Blood collected. 18:39 XRAY Chest (1 view) In Process Unspecified. EDMS 19:39 Patient has correct armband on for positive identification. Placed in gown. Bed in low lg3 position. Call light in reach. Side rails up X 1. Client placed on continuous cardiac and pulse oximetry monitoring. NIBP monitoring applied. Door closed. Noise minimized. Warm blanket given. Family accompanied patient. 20:15 Urine Microscopic Only Sent. tw5 20:24 Arely Espinosa, RN is Primary Nurse. lg3 22:41 CT Head Brain wo Cont In Process Unspecified. EDMS 01/01 00:01 No provider procedures requiring assistance completed. IV discontinued, intact, lg3 bleeding controlled, No redness/swelling at site. Pressure dressing applied. Administered Medications: 12/31 19:20 CANCELLED (Physician Discretion; cancel ): NS 0.9% 500 ml IV at bolus once snw 19:39 Drug: [place] (HYDROcodone-acetaminophen) 5 mg-325 mg 1 tabs Route: PO; lg3 20:17 Follow up: Response: No adverse reaction; Marked relief of symptoms lg3 19:39 Drug: LaSIX (furosemide) 20 mg Route: PO; lg3 20:16 Follow up: Response: No adverse reaction lg3 21:36 Not Given (Physician Discretion): NS 0.9% 500 ml IV at bolus once lg3 22:24 Drug: NS 0.9% 500 ml Route: IV; Rate: bolus; Site: right forearm; lg3 01/01 00:00 Follow up: IV Status: Completed infusion; IV Intake: 500ml lg3 00:00 Drug: Zofran (Ondansetron) 4 mg Route: PO; lg3 00:00 Follow up: Response: No adverse reaction lg3 Medication: 00:01 VIS not applicable for this client. lg3 Intake: 00:00 IV: 500ml; Total: 500ml. lg3 Outcome: 12/31 23:43 Discharge ordered by . snw 01/01 00:01 Discharged to home via wheelchair, with family. lg3 Condition: stable Discharge instructions given to patient, family, Instructed on discharge instructions, follow up and referral plans. medication usage, Demonstrated understanding of instructions, follow-up care, medications, Prescriptions given X 1. 00:02 Patient left the ED. lg3 Signatures: Dispatcher [facility] Josey Navarro FNP-C BROOMCORN SORTER-Nicolasa Godinez, RN RN gustavo5 Chandrakant Rob ds4 Hiral Saavedra am2 Arely Espinosa, RN RN lg3 Iliana Frey tw5 Corrections: (The following items were deleted from the chart) 12/31 17:22 17:20 Chief complaint: Patient states: weak and dizzy x 3 days, no fever aa5 aa5
--- NOTE | 2021-12-31 23:44 | EDPHYS ---
Physician Documentation [facility] Name: Augustina Bonds Age: 86 yrs Sex: Female : 1935 Arrival Date: 12/31/2021 Time: 16:59 Bed 12 Private MD: ED Physician Marc Moon HPI: 12/31 17:32 This 86 yrs old Female presents to ER via Wheelchair with complaints of snw General Weakness, Shortness Of Breath. 17:32 Onset: The symptoms/episode began/occurred suddenly, 3 day(s) ago, and became worse and snw became persistent. Associated signs and symptoms: Pertinent positives: congestion, cough, headache, palpitations. Modifying factors: The patient symptoms are alleviated by nothing, the patient symptoms are aggravated by activity. The patient has not experienced similar symptoms in the past. The patient has not recently seen a physician. Historical: - Allergies: 17:22 No Known Allergies; aa5 - Home Meds: 17:22 None [Active]; aa5 - PMHx: 17:22 None; aa5 - PSHx: 17:22 None; aa5 - Immunization history:: Adult Immunizations unknown. - Social history:: Smoking status: Patient denies any tobacco usage or history of. ROS: 17:27 Eyes: Negative for injury, pain, redness, and discharge, ENT: Negative for injury, snw pain, and discharge, Neck: Negative for injury, pain, and swelling. 17:27 Abdomen/GI: Negative for abdominal pain, nausea, vomiting, diarrhea, and constipation, Back: Negative for injury and pain, : Negative for injury, bleeding, discharge, and swelling, MS/Extremity: Negative for injury and deformity, Skin: Negative for injury, rash, and discoloration, Neuro: Negative for headache, weakness, numbness, tingling, and seizure, Psych: Negative for depression, anxiety, suicide ideation, homicidal ideation, and hallucinations. 17:27 Constitutional: Positive for body aches, fatigue, malaise. 17:27 Cardiovascular: Positive for palpitations. 17:27 Respiratory: Positive for cough, shortness of breath. Exam: 17:27 Head/Face: Normocephalic, atraumatic. Eyes: Pupils equal round and reactive to light, snw extra-ocular motions intact. Lids and lashes normal. Conjunctiva and sclera are non-icteric and not injected. Cornea within normal limits. Periorbital areas with no swelling, redness, or edema. ENT: Nares patent. No nasal discharge, no septal abnormalities noted. Tympanic membranes are normal and external auditory canals are clear. Oropharynx with no redness, swelling, or masses, exudates, or evidence of obstruction, uvula midline. Mucous membranes moist. Neck: Trachea midline, no thyromegaly or masses palpated, and no cervical lymphadenopathy. Supple, full range of motion without nuchal rigidity, or vertebral point tenderness. No Meningismus. Chest/axilla: Normal chest wall appearance and motion. Nontender with no deformity. No lesions are appreciated. Cardiovascular: Regular rate and rhythm with a normal S1 and S2. No gallops, murmurs, or rubs. Normal PMI, no JVD. No pulse deficits. Respiratory: Lungs have equal breath sounds bilaterally, clear to auscultation and percussion. No rales, rhonchi or wheezes noted. No increased work of breathing, no retractions or nasal flaring. Abdomen/GI: Soft, non-tender, with normal bowel sounds. No distension or tympany. No guarding or rebound. No evidence of tenderness throughout. Back: No spinal tenderness. No costovertebral tenderness. Full range of motion. Skin: Warm, dry with normal turgor. Normal color with no rashes, no lesions, and no evidence of cellulitis. MS/ Extremity: Pulses equal, no cyanosis. Neurovascular intact. Full, normal range of motion. Neuro: Awake and alert, GCS 15, oriented to person, place, time, and situation. Cranial nerves II-XII grossly intact. Motor strength 5/5 in all extremities. Sensory grossly intact. Cerebellar exam normal. Normal gait. Psych: Awake, alert, with orientation to person, place and time. Behavior, mood, and affect are within normal limits. 17:27 Constitutional: The patient appears alert, awake, frail, listless. Vital Signs: 17:22 BP 135 / 75; Pulse 72; Resp 18 S; Temp 97.1(TE); Pulse Ox 96% on R/A; aa5 23:02 BP 169 / 63 LA Supine (auto/pedi); Pulse 61 MON; ds4 23:05 BP 185 / 79 LA Sitting (auto/pedi); Pulse 66 MON; ds4 23:08 BP 184 / 73; Pulse 71 MON; ds4 MDM: 17:24 Patient medically screened. snw 17:31 Data reviewed: vital signs, nurses notes. Data interpreted: Pulse oximetry: on room air snw is 96 %. Interpretation: acceptable. Counseling: I had a detailed discussion with the patient and/or guardian regarding:. 12/31 17:27 Order name: Basic Metabolic Panel; Complete Time: 18:38 snw 12/31 17:27 Order name: CBC with Diff; Complete Time: 18:13 snw 12/31 17:27 Order name: LFT's; Complete Time: 18:38 snw 12/31 17:27 Order name: Magnesium; Complete Time: 18:38 snw 12/31 17:27 Order name: NT PRO-BNP; Complete Time: 18:38 snw 12/31 17:27 Order name: PT-INR; Complete Time: 18:21 snw 12/31 17:27 Order name: Troponin HS; Complete Time: 18:38 snw 12/31 17:27 Order name: XRAY Chest (1 view); Complete Time: 19:18 snw 12/31 17:27 Order name: Flu; Complete Time: 19:03 snw 12/31 17:27 Order name: SARS-COV-2 RT PCR (Document "Date of Onset" if Symptomatic); Complete Time: snw 18:44 12/31 19:04 Order name: Urine Microscopic Only; Complete Time: 20:39 snw 12/31 20:17 Order name: Urine Dipstick-Ancillary; Complete Time: 20:18 EDMS 12/31 21:55 Order name: Glucose, Ancillary Testing; Complete Time: 21:59 EDMS 12/31 22:04 Order name: CT Head Brain wo Cont snw 12/31 17:27 Order name: EKG; Complete Time: 17:28 snw 12/31 17:27 Order name: Cardiac monitoring; Complete Time: 23:52 snw 12/31 17:27 Order name: EKG - Nurse/Tech; Complete Time: 18:00 snw 12/31 17:27 Order name: IV Saline Lock; Complete Time: 18:00 snw 12/31 17:27 Order name: Labs collected and sent; Complete Time: 18:00 snw 12/31 17:27 Order name: O2 Per Protocol; Complete Time: 23:13 snw 12/31 17:27 Order name: O2 Sat Monitoring; Complete Time: 23:13 snw 12/31 19:04 Order name: Urine Dipstick-Ancillary (obtain specimen); Complete Time: 20:15 snw 12/31 20:19 Order name: Orthostatics; Complete Time: 23:11 snw Administered Medications: 19:20 CANCELLED (Physician Discretion; cancel ): NS 0.9% 500 ml IV at bolus once snw 19:39 Drug: [place] (HYDROcodone-acetaminophen) 5 mg-325 mg 1 tabs Route: PO; lg3 20:17 Follow up: Response: No adverse reaction; Marked relief of symptoms lg3 19:39 Drug: LaSIX (furosemide) 20 mg Route: PO; lg3 20:16 Follow up: Response: No adverse reaction lg3 21:36 Not Given (Physician Discretion): NS 0.9% 500 ml IV at bolus once lg3 22:24 Drug: NS 0.9% 500 ml Route: IV; Rate: bolus; Site: right forearm; lg3 01/01 00:00 Follow up: IV Status: Completed infusion; IV Intake: 500ml lg3 00:00 Drug: Zofran (Ondansetron) 4 mg Route: PO; lg3 00:00 Follow up: Response: No adverse reaction lg3 Disposition Summary: 12/31/21 23:43 Discharge Ordered Location: Home snw Condition: Stable snw Diagnosis - Other malaise and fatigue snw Followup: snw - With: Emergency Department - When: As needed - Reason: Worsening of condition Followup: snw - With: Private Physician - When: 2 - 3 days - Reason: Recheck today's complaints, Continuance of care, Re-evaluation by your physician Discharge Instructions: - Discharge Summary Sheet snw - Upper Respiratory Infection, Adult snw - Fatigue snw Forms: - Medication Reconciliation Form snw - Thank You Letter snw - Antibiotic Education snw - Prescription Opioid Use snw Prescriptions: - Zofran 4 mg Oral Tablet - take 1 tablet by ORAL route every 12 hours As needed; 6 tablet; Refills: 0, snw Product Selection Permitted Signatures: Dispatcher [employer] Josey Urrutia FNP-C JAVA ANALYST-Csnw Nicolasa Saucedo, RN RN aa5 Arely Espinosa RN RN lg3 Iliana Frey tw5 Corrections: (The following items were deleted from the chart) 12/31 19:20 18:44 NS 0.9% 500 ml IV at bolus once ordered. snw snw
[2022-01-01] MEDS ORDERED: ONDANSETRON 4 MG (ODT) TAB ONE (00:07)
--- NOTE | 2022-01-01 11:35 | RAD REPORT ---
EXAM DESCRIPTION: CT - Head Brain Wo Cont - 12/31/2021 10:40 pm CLINICAL HISTORY: The patient is 86 years old and is Female; Mental status change, unknown cause TECHNIQUE: Axial computed tomography images of the head/brain without intravenous contrast. Sagitt al and coronal reformatted images were created and reviewed. This CT exam was performed using one o r more of the following dose reduction techniques: automated exposure control, adjustment of the mA and/or kV according to patient size, and/or use of iterative reconstruction technique. COMPARISON: No relevant prior studies available. FINDINGS: BRAIN: Prominent arachnoid cyst versus megacisterna magna in the posterior fossa. No hemorrhage. No significant white matter disease. No midline shift or transtentorial bertin iation. VENTRICLES: Unremarkable. No ventriculomegaly. BONES/JOINTS: Unremarkable. No acute fracture. SOFT TISSUES: Unremarkable. SINUSES: Left eliezer bullosa normal variant anatomy. MASTOID AIR CELLS: Unremarkable as visualized. No mastoid effusion. IMPRESSION: No acute intracranial abnormality. Electronically signed by: Stephane Sands MD 12/31/2021 10:59 PM CDT Due to temporary technical issues with the PACS/Fluency reporting system, reports are being signed by the in house radiologists without review as a courtesy to insure prompt reporting. The interpreting radiologist is fully responsible for the content of the report.
[2022-01-02 12:03] VITALS: BP 184/73
[2022-01-02 12:14] VITALS: TEMP 97.1; O2SAT 96
--- NOTE | 2022-01-04 14:17 | EKG ---
Test Date: 2021-12-31 Test Time: 17:47:55 Press Operator Apprentice: MARC MEASUREMENT RESULTS: Intervals: Rate: 60 AK: 154 QRSD: 76 QT: 408 QTc: 408 [place]: P: 66 AK: 154 QRS: -11 T: 38 INTERPRETIVE STATEMENTS: Normal sinus rhythm with sinus arrhythmia Nonspecific ST abnormality Abnormal ECG Compared to ECG 07/30/2017 16:23:42 ST (T wave) deviation now present Left-axis deviation no longer present Electronically Signed On 01-04-22 14:14:31 CDT by Bear Cao
== END 2022-01-01 00:02 | disposition home or self-care (01) ==
LOC: ER 16:46
DX: R53.81 Other malaise (principal); R53.83 Other fatigue; R06.02 Shortness of breath; Z20.822 Contact with and (suspected) exposure to COVID-19
CPT/HCPCS: 36415; 70450; 71045; 80048; 80076; 81003; 81015; 82947; 83735; 83880; 84484; 85025; 85610; 87804; 93005; 96360; 96361; 99284; J7040; Q0162; U0003

== ENCOUNTER 2023-09-07 09:40 | Day surgery (SDC) | payer OTHER ==
[2023-09-07 09:04] LABS: Absolute Neutrophil 4.9 K/uL (1.8-8.0); Basophils % 1.3 % (0-1.3); Eosinophils % 2.1 % (0-4.4); Hematocrit 37.8 % (36.0-45.0); Hemoglobin 12.8 g/dL (12.0-15.0); Lymphocytes % 23.3 % (15.3-44.8); MCH 31.1 pg (27.0-35.0); MCHC 33.9 g/dL (32.0-36.0); MCV 91.6 fL (80-100); Monocytes % 8.9 % (3.3-12.3); Neutrophils % 64.4 % (41.7-73.7); Platelets 224 thou/uL (152-406); RBC Red Blood Cell Count 4.13 M/uL (3.86-4.86); Red Cell Distribution Width 14.4 % (12.1-15.2)
[2023-09-07 09:05] LABS: Absolute Basophils 0.1 K/uL (0-0.5); Absolute Eosinophils 0.2 K/uL (0-0.5); Absolute Lymphocytes (CBC) 1.8 K/uL (0.7-4.9); Absolute Monocytes 0.7 K/uL (0.1-1.3)
--- NOTE | 2023-09-07 09:08 | RAD REPORT ---
EXAM DESCRIPTION: RAD - Chest Pa And Lat (2 Views) - 09/07/2023 9:02 am CLINICAL HISTORY: pre op pending back mass removal Chest pain. COMPARISON: Chest Single View dated 12/31/2021 TECHNIQUE: PA and lateral views of the chest were obtained. FINDINGS: The lungs are hyperexpanded compatible with COPD. The heart is upper limit of normal in si ze. No fracture or aggressive bony process. IMPRESSION: COPD without acute process identified.
[2023-09-07 09:18] LABS: Anion Gap 4.5 mEq/L (5.0-15.0); Potassium 4.5 mEq/L (3.5-5.1)
[2023-09-07] MEDS ORDERED: propofoL 200 MG/20 ML VIAL IV ONE (09:48)
[2023-09-07] MEDS ORDERED: FENTANYL CITR 100 MCG/2 ML ONE (09:48)
[2023-09-07] MEDS ORDERED: ONDANSETRON 4 MG/2 ML VIAL ONE (09:48)
[2023-09-07] MEDS ORDERED: LIDOCAINE 2% MPF 5 ML VIAL ONE (09:48)
[2023-09-07] MEDS: Ringers Lactate 1,000 ML IV ONE (10:00)
[2023-09-07] MEDS: CEFAZOLIN SODIUM 1 GM/VIAL ONE (10:50)
[2023-09-07] MEDS ORDERED: EPHEDRINE SULF 50 MG/ML VIAL ONE (11:00)
[2023-09-07] MEDS ORDERED: dexAMETHasone 4 MG/ML VIAL ONE (11:00)
--- NOTE | 2023-09-07 11:16 | P.BOP ---
Preoperative diagnosis: tender back subQ mass Postoperative diagnosis: same Primary procedure: Excisional biopsy of tender back subQ mass 6x5cm Estimated blood loss: <10cc Specimen: mass Findings: mass Anesthesia: General Complications: None Transferred to: Recovery Room Condition: Good
[2023-09-07 11:36] VITALS: O2SAT 100
[2023-09-07 13:29] VITALS: BP 153/73; TEMP 97
--- NOTE | 2023-09-09 16:59 | EKG ---
Test Date: 2023-09-07 Test Time: 08:41:06 Fine Patcher: DONNA MEASUREMENT RESULTS: Intervals: Rate: 82 OK: 140 QRSD: 82 QT: 358 QTc: 418 [place]: P: 29 OK: 140 QRS: -16 T: 58 INTERPRETIVE STATEMENTS: Normal sinus rhythm Normal ECG Compared to ECG 12/31/2021 17:47:55 Sinus arrhythmia no longer present ST (T wave) deviation no longer present Electronically Signed On 09-09-23 16:50:45 CDT by Bear Cao
== END 2023-09-07 12:51 | disposition home or self-care (01) ==
LOC: OR 09:40
PROVIDERS: ATTEND Surgery
PROC: 0JB70ZZ Excision of Back Subcutaneous Tissue and Fascia, Open Approach (ICD-10-PCS; principal; 2023-09-07 11:45)
DX: D17.1 Benign lipomatous neoplasm of skin and subcutaneous tissue of trunk (principal)
CPT/HCPCS: 11406; 93005; 85025; 80048; 36415; 88304; 71046; J2704; J1100; J2001; J3010; J2405; J7120; J0690

== ENCOUNTER 2024-04-13 21:07 | Emergency (ER) | payer OTHER ==
--- OUTSIDE RECORDS SUMMARY | 2024-04-13 21:10 | XMS REPORT | Continuity of Care Document ---
Author Name Unknown Address [address] [place] [address] [facility] thconnect Address [address] [place] [address] Care Team Providers Care [facility] Name Role Phone Laverne Veronica NP Primary Care Physician RADIOLOGY Attending Clinician Unavailable Radiology Attending Clinician Unavailable SAMANTHA VERONICA Admitting Clinician Unavail able Payers Payer Name Policy Type Policy Number Effective Date Expirati on Date Source [facility] [employer] H[employer] SNP [id number] 2023 00:00:00 [place] [id number] 2023 00:00:00 Allergies, Adverse Reactions, Alerts Allergy Name Allergy Type Status Severity Reaction(s) Onset Date Inactive Date Treating Clinician Comments Source NO KNOWN ALLERGIE S Drug Class Active Univers [facility] Social History Social Habit Start Date Stop Date Quantity Comments Source Sexual orientation U [facility] Sex Assigned At 1935 00:00:00 1935 00:00:00 [facility] Smoking Status Start Date Stop Date Source Tobacco smoking consumption unknown [facility] Medications Ordered Medication Name Filled Medication Name Start Date Stop Date Current Medication? Ordering Clinician Indication Dosage Frequency Signature (SIG) Comments Components Source BREZTRI AERO SPHERE INH 2-06 00:00: 00 Yes Francisco Flannery FLUTICASONE 50MCG RX SPR 2-05 00:00: 00 Yes Francisco Flannery INSTILL 1 DROP INTO EACH EYE ONCE DAILY FOR 2 WEEKS 3-13 00:00: 00 Yes Francisco Flannery acetaminoph en-codeine (TYLENOL-CO DEINE #3) 300-30 mg tablet 2015-04 0 00:00: 00 Yes 1{tbl} Take 1 tablet by mouth every 6 (six) hours as needed for Pain (scale 4-6) (for cough). [facility] Immunizations Ordered Immunization Name Filled Immunization Name Date Status Comments Source SARS-COV-2 COVID-19 PFIZER VACCINE Unknown Completed [facility] SARS-COV-2 COVID-19 MODERNA 0.25ML BOOSTER VACCINE Unknown Completed [facility] Vital Signs Vital Name Observation Time Observation Value Comments S ource Heart Rate 2023-05-17 13:28:00 97.00 /min Adela en F Prudencio Respiratory Rate 2023-05-17 13:28:00 20.00 /min Francisco Dotty Flannery BP Systolic 2023-05-17 13:28:00 122 mm[Hg] Step hen F Prudencio BP Diastolic 2023-05-17 13:28:00 76 mm[Hg] Josh phen F Prudencio Weight Measured 2023-05-17 13:28:00 117.20 pounds Francisco Flannery Height Measured 2023-05-17 13:28:00 58.27 inches Francisco Flannery Body Temperature 2023-05-17 13:28:00 97.70 degrees Francisco Dotty Flannery BP Systolic 2022-06-29 11:40:00 133 mm[Hg] Step hen F Prudencio BP Diastolic 2022-06-29 11:40:00 66 mm[Hg] Josh phen F Prudencio Weight Measured 2022-06-29 11:40:00 117.20 pounds Francisco Flannery Height Measured 2022-06-29 11:40:00 58.27 inches Francisco Dotty Flannery Body Temperature 2022-06-29 11:40:00 Francisco Dotty Flannery Heart Rate 2022-06-29 11:40:00 79.00 /min Adela en F Prudencio Respiratory Rate 2022-06-29 11:40:00 Francisco F Prudencio BP Systolic 2022-06-29 11:16:00 133 mm[Hg] Step hen F Prudencio BP Diastolic 2022-06-29 11:16:00 66 mm[Hg] Josh Flannery Weight Measured 2022-06-29 11:16:00 117.20 pounds Francisco Flannery Height Measured 2022-06-29 11:16:00 58.27 inches Francisco Flannery Body Temperature 2022-06-29 11:16:00 97.90 degrees Francisco Flannery Heart Rate 2022-06-29 11:16:00 79.00 /min Adela Flannery Respiratory Rate 2022-06-29 11:16:00 Francisco Flannery Procedures Procedure Date / Time Performed Performing Clinicia n Source DEXA AXIAL (HIP AND SPINE) 2023-05-30 17:14:00 Samantha Veronica [facility] [address] Ekg W/ At Least 12 Leads W/ I r 2022-06-29 00:00:00 Francisco Flannery Encounters Start Date/Time End Date/Time Encounter Type Admission Type Attending [facility] Care Facility Care Department Encounter ID Source 2023-05-30 10:40:00 2023-05-30 23:59:00 Outpatient R RADIOLOGY [facility] [id number] [facility] 2023-05-30 10:40:00 2023-05-30 23:59:00 Hospital Encounter Radiology [facility] [id number] [facility] 2023-05-23 10:14:02 2023-05-23 10:14:02 Outpatient [facility] [id number] Francisco Flannery 2023-05-17 13:45:59 2023-05-17 13:45:59 Outpatient [facility] [id number] Francisco Flannery 2023-05-17 13:25:41 2023-05-17 13:25:41 Outpatient [id number] [id number] Francisco Flannery 2023-05-17 00:00:00 2023-05-17 00:00:00 Outpatient Visit [facility] [id number] Francisco Flannery 2023-05-16 08:23:51 2023-05-16 08:23:51 Outpatient [facility] [id number] Francisco Flannery 2022-06-30 08:20:20 2022-06-30 08:20:20 Outpatient [facility] [id number] Francisco Flannery Results Test Description Test Time Test Comments Results Resul t Comments Source DEXA AXIAL (HIP AND SPINE) 2023-05-31 01:00:46 EXAM: DEXA AXIAL (HIP AND SPINE) HISTORY: 88 years ?Female; osteoporosis screening. COMPARISON: None available. TECHNIQUE: Bone densitometry of the lumbar spine and right hip was performed on Evogen system. ? ? FINDINGS: Lumbar spine L1-L4: T-score -4.4. ?Bone mineral density: 0.653 g/cm^2. Right Femoral Neck: T-score -3.9. ?Bone mineral density: 0.492 g/cm^2. Right Total Femur: T-score -3.2. ?Bone mineral density: 0.602 g/cm^2. [facility] HEMOGLOBIN [id number] 04:59:41* Test Item Value Reference Range Interpretation Comme nts HEMOGLOBIN A1c (test code = 21155) 5.5 % 4.2-5.6 CBC W/AUTO DIFF WITH [id number] 03:58:44* Test Item Value Reference Range Interpretation Comme nts WBC (test code = 1001) 5.4 K/UL 3.5-11.0 RBC (test code = 1002) 3.81 M/UL 3.80-5.40 HEMOGLOBIN (test code = 1003) 11.7 G/DL 11.5-15.5 HEMATOCRIT (test code = 1004) 34.6 % 34.0-45.0 MCV (test code = 1005) 90.8 fL 80.0-99.0 MCH (test code = 1006) 30.7 PG 25.0-33.0 MCHC (test code = 1007) 33.8 G/DL 31.0-36.0 RDW (test code = 1038) 13.7 % 11.5-15.0 NEUTROPHILS (test code = 1008) 52.9 % LYMPHOCYTES (test code = 1010) 34.0 % MONOCYTES (test code = 1011) 8.2 % EOSINOPHILS (test code = 1012) 3.2 % BASOPHILS (test code = 1013) 1.1 % IMMATURE GRANULOCYTES (test code = 1036) 0.6 % NUCLEATED RBCS (test code = 1065) 0.0 /100 WBC'S See_Comment [Automated messa ge] The system which generated this result transmitted reference range: 0.0. The reference range was not used to interpret this result as normal/abnormal. PLATELET COUNT (test code = 1015) 216 K/UL 130-400 ABSOLUTE NEUTROPHILS (test code = 1066) 2.85 K/UL 1.50-7.50 ABSOLUTE LYMPHOCYTES (test code = 1067) 1.83 K/UL 1.00-4.00 ABSOLUTE MONOCYTES (test code = 1068) 0.44 K/UL 0.20-1.00 ABSOLUTE EOSINOPHILS (test code = 1040) 0.17 K/UL 0.00-0.50 ABSOLUTE BASOPHILS (test code = 1069) 0.06 K/UL 0.00-0.20 ABS IMMATURE GRANULOCYTES (test code = 1020) 0.03 K/UL 0.00-0.10 ABS NUCLEATED RBCS (test code = 79670) 0.00 K/UL 0.00-0.11 CBC W/AUTO [id number] 00:00:00* Test Item Value Reference Range Interpretation Comme nts WBC (test code = 1001) 5.4 K/UL RBC (test code = 1002) 3.81 M/UL HEMOGLOBIN (test code = 1003) 11.7 G/DL HEMATOCRIT (test code = 1004) 34.6 % MCV (test code = 1005) 90.8 fL MCH (test code = 1006) 30.7 PG MCHC (test code = 1007) 33.8 G/DL RDW (test code = 1038) 13.7 % NEUTROPHILS (test code = 1008) 52.9 % LYMPHOCYTES (test code = 1010) 34.0 % MONOCYTES (test code = 1011) 8.2 % EOSINOPHILS (test code = 1012) 3.2 % BASOPHILS (test code = 1013) 1.1 % IMMATURE GRANULOCYTES (test code = 1036) 0.6 % NUCLEATED RBCS (test code = 1065) 0.0 /100WBC'S PLATELET COUNT (test code = 1015) 216 K/UL ABSOLUTE NEUTROPHILS (test c ode = 1066) 2.85 K/UL ABSOLUTE LYMPHOCYTES (test c ode = 1067) 1.83 K/UL ABSOLUTE MONOCYTES (test cod e = 1068) 0.44 K/UL ABSOLUTE EOSINOPHILS (test c ode = 1040) 0.17 K/UL ABSOLUTE BASOPHILS (test cod e = 1069) 0.06 K/UL ABS IMMATURE GRANULOCYTES (t est code = 1020) 0.03 K/UL ABS NUCLEATED RBCS (test cod e = 95868) 0.00 K/UL Francisco FlanneryHEMOGLOBIN [id number] 00:00:00* Test Item Value Reference Range Interpretation Comme nts HEMOGLOBIN A1c (test code = 36154) 5.5 % Francisco FlanneryCOMPREHENSIVE METABOLIC [id number] 00:00:00* Test Item Value Reference Range Interpretation Comme nts GLUCOSE (test code = 2217) 97 MG/DL BUN (test code = 2208) 10 MG/DL CREATININE (test code = 2214) 0.74 MG/DL eGFR (2020 CKD-EPI) (test co de = 45894) 79 ML/MIN/1.73 CALC BUN/CREAT (test code = 2235) 14 RATIO SODIUM (test code = 2231) 140 MEQ/L POTASSIUM (test code = 2228) 5.0 MEQ/L CHLORIDE (test code = 2215) 103 MEQ/L CARBON DIOXIDE (test code = 2206) 27 MEQ/L CALCIUM (test code = 2209) 9.6 MG/DL PROTEIN, TOTAL (test code = 2229) 6.5 G/DL ALBUMIN (test code = 2201) 4.4 G/DL CALC GLOBULIN (test code = 2240) 2.1 G/DL CALC A/G RATIO (test code = 2234) 2.1 RATIO BILIRUBIN, TOTAL (test code = 2207) 0.3 MG/DL ALKALINE PHOSPHATASE (test code = 2204) 107 U/L AST (test code = 2218) 22 U/L ALT (test code = 2219) 21 U/L Francisco Storm Prudencio
[2024-04-13 21:34] LABS: Hematocrit 39.1 % (36.0-45.0); Hemoglobin 13.3 g/dL (12.0-15.0); MCH 31.7 pg (27.0-35.0); MCHC 33.9 g/dL (32.0-36.0); MCV 93.5 fL (80-100); Platelets 205 thou/uL (152-406); RBC Red Blood Cell Count 4.18 M/uL (3.86-4.86)
[2024-04-13] MEDS ORDERED: ONDANSETRON 4 MG/2 ML VIAL ONE (21:34)
[2024-04-13] MEDS ORDERED: MORPHINE 2 MG/ML SYR ONE (21:34)
[2024-04-13 21:35] LABS: Absolute Lymphocytes (CBC) 0.4 K/uL (0.7-4.9); Absolute Monocytes 0.9 K/uL (0.1-1.3); Absolute Neutrophil 6.1 K/uL (1.8-8.0); Basophils % 0.4 % (0-1.3); Eosinophils % 0.2 % (0-4.4); Lymphocytes % 5.8 % (15.3-44.8); MPV 8.4 fL (7.6-11.3); Monocytes % 11.7 % (3.3-12.3); Neutrophils % 81.9 % (41.7-73.7); Red Cell Distribution Width 14.2 % (12.1-15.2)
[2024-04-13 21:40] LABS: Protime INR 1.07
--- NOTE | 2024-04-13 21:49 | RAD REPORT ---
Procedure: Chest Single View HISTORY: Chest pain COMPARISON: 2023 FINDINGS: The lungs appear clear of acute infiltrate. No significant pleural effusion noted. The heart is borderline enlarged. . IMPRESSION: No acute abnormality is displayed.
[2024-04-13 21:53] LABS: Anion Gap 10.1 mEq/L (5.0-15.0); Potassium 4.1 mEq/L (3.5-5.1); Troponin High Sensitivity 13.8 pg/mL (<58.9)
[2024-04-13 23:06] LABS: SARS-CoV-2 Antigen CONTROL BLUE LINE VIS/BG OK; SARS-CoV-2 Antigen Rapid Res Negative (Negative)
--- NOTE | 2024-04-13 23:14 | ER ---
Nurse's Notes [facility] Name: Augustina Bonds Age: 88 yrs Sex: Female : 1935 Arrival Date: 04/13/2024 Time: 21:07 Bed 7 Private MD: Diagnosis: Influenza due to identified novel influenza A virus Presentation: 04/13 21:19 Chief complaint: Patient states: STABBING CHEST PAIN, HEADACHE, COUGH AND FEVER X1 DAY. dd2 Coronavirus screen: cough unrelated to allergies, fever, headache, shortness of breath, sore throat. Ebola Screen: No symptoms or risks identified at this time. Initial Sepsis Screen: Does the patient meet any 2 criteria? No. Patient's initial sepsis screen is negative. Does the patient have a suspected source of infection? No. Patient's initial sepsis screen is negative. Risk Assessment: Do you want to hurt yourself or someone else? Patient reports no desire to harm self or others. Onset of symptoms was April 12, 2024. 21:19 Method Of Arrival: Ambulatory dd2 21:19 Acuity: JASON 3 dd2 Triage Assessment: 21:19 General: Appears uncomfortable, Behavior is cooperative, appropriate for age, anxious. dd2 Pain: Complains of pain in top of head, forehead and chest Pain does not radiate. Pain currently is 10 out of 10 on a pain scale. Historical: - Allergies: 21:20 No Known Allergies; dr5 - Immunization history:: Adult Immunizations unknown. - Infectious Disease History:: Denies. - Social history:: Smoking status: Patient denies any tobacco usage or history of. Screenin:10 [facility] ED Fall Risk Assessment (Adult) History of falling in the last 3 months, ha1 including since admission Yes- single mechanical fall (1 pt) Confusion or Disorientation No (0 pts) Intoxicated or Sedated No (0 pts) Impaired Gait Yes (1 pt) Mobility Assist Device Used Yes (1 pt) Altered Elimination No (0 pt) Score/Fall Risk Level 3 or more points = High Risk Oriented to surroundings, Maintained a safe environment, Educated pt \T\ family on fall prevention, incl call for assistance when getting out of bed, Hourly rounding (assess needs \T\ fall precautionary measures) done, Implemented a Fall Risk Plan of Care. Abuse screen: Denies threats or abuse. Denies injuries from another. Nutritional screening: No deficits noted. Tuberculosis screening: No symptoms or risk factors identified. Assessment: 21:09 General: Appears uncomfortable, Behavior is calm, cooperative. Pain: Complains of pain ha1 in all over body, headache, chest, stomach, and body aches Pain does not radiate. Pain currently is 6 out of 10 on a pain scale. Neuro: Level of Consciousness is awake, alert, obeys commands, Oriented to person, place, time, situation. Cardiovascular: Capillary refill < 3 seconds Patient's skin is warm and dry. Rhythm is sinus rhythm. Respiratory: Reports shortness of breath at rest on exertion nasal congestion Airway is patent Respiratory effort is even, unlabored, Respiratory pattern is regular, symmetrical. GI: Abdomen is round non-distended. Derm: Skin is healthy with good turgor, Skin is moist, Skin is normal. Musculoskeletal: Circulation, motion, and sensation intact. Range of motion: intact in all extremities. Vital Signs: 21:19 BP 155 / 73; Pulse 110; Resp 19; Temp 99.4; Pulse Ox 96% on R/A; Pain 10/10; dd2 22:15 BP 115 / 58; Pulse 94; Resp 18 S; Pulse Ox 95% on R/A; ha1 23:20 BP 125 / 59; Pulse 96; Resp 18; Temp 98.9(O); Pulse Ox 100% on R/A; dd2 21:19 Pain Scale: Adult dd2 ED Course: 21:09 Patient arrived in ED. ra3 21:09 Lowell Caruso FNP-C [facility]. dr5 21:09 Carlos Arita MD is Attending Physician. dr5 21:09 Patient has correct armband on for positive identification. Placed in gown. Bed in low ha1 position. Call light in reach. Side rails up X 1. Adult w/ patient. 21:19 Arm band placed on right wrist. Patient placed in an exam room, on a stretcher, on dd2 pulse oximetry. 21:21 Triage completed. dd2 21:30 Inserted saline lock: 20 gauge in left antecubital area, using aseptic technique. Blood af3 collected. Flushed with 10 mL NS. 21:36 XRAY Chest (1 view) In Process Unspecified. EDMS 21:57 EKG done, by vascular ultrasound technologist. af3 22:40 Strep Sent. dd2 22:40 Influenza Screen (a \T\ B) Sent. dd2 22:40 SARS RAPID Sent. dd2 23:19 TRENT BARBER, RN is Primary Nurse. dd2 23:20 Client placed on continuous cardiac and pulse oximetry monitoring. NIBP monitoring dd2 applied. gas operations analyst on. Door closed. Noise minimized. Warm blanket given. Pillow given. Verbal reassurance given. 23:20 No provider procedures requiring assistance completed. Patient maintains SpO2 dd2 saturation greater than 95% on room air. 23:22 Provided Education on: d/c education. dd2 23:26 IV discontinued, intact, bleeding controlled, No redness/swelling at site. Pressure dd2 dressing applied. Administered Medications: 21:50 Drug: Ondansetron IVP 4 mg IVP once; over 2 minutes Route: IVP; Site: left antecubital; ha1 21:52 Drug: morphine IVP or IV 2 mg IVP once over 4 mins Route: IVP; Infused Over: 4 mins; ha1 Site: left antecubital; 22:21 CANCELLED (Inappropriate at this time; Canceled ordered): GI Cocktail without dr5 - (maaloxsuspension 30 ml, lidocaine mucous membrane liquid 2 % 15 ml) PO once Medication: 22:32 VIS not applicable for this client. ha1 Outcome: 23:14 Discharge ordered by . dr5 23:22 Discharged to home via wheelchair, with family, dd2 23:22 Condition: stable 23:22 Discharge instructions given to patient, family, Instructed on discharge instructions, follow up and referral plans. medication usage, Demonstrated understanding of instructions, follow-up care, medications, Prescriptions given X 2, 23:26 Patient left the ED. dd2 Signatures: Dispatcher [employer] EDUT Rut Gregorio, RN RN ha1 Mallika Barrera Ashley af3 TRENT BARBER RN RN dd2 Lowell Caruso, TARGETING ACQUISITION OFFICER-C TARGETING ACQUISITION OFFICER-Cdr5
--- NOTE | 2024-04-13 23:14 | EDPHYS ---
Physician Documentation [facility] Name: Augustina Bonds Age: 88 yrs Sex: Female : 1935 Arrival Date: 04/13/2024 Time: 21:07 Bed 7 Private MD: ED Physician Carlos Arita HPI: 04/13 21:19 This 88 yrs old Female presents to ER via Unassigned with complaints of Chest dr5 Pain, Shortness Of Breath. 21:19 Onset: The symptoms/episode began/occurred 1 day(s) ago. Patient is a 88-year-old dr5 female with no possible history or daily medications coming in with 1 day of generalized chest pain that comes and goes and epigastric abdominal pain. Patient denies dysuria, congestion, ear pain, sore throat.. Historical: - Allergies: 21:20 No Known Allergies; dr5 - Immunization history:: Adult Immunizations unknown. - Infectious Disease History:: Denies. - Social history:: Smoking status: Patient denies any tobacco usage or history of. ROS: 21:20 Constitutional: as per hpi dr5 Exam: 21:20 Constitutional: This is a well developed, well nourished patient who is awake, alert, dr5 and in no acute distress. Head/Face: Normocephalic, atraumatic. Eyes: Pupils equal round and reactive to light, extra-ocular motions intact. Lids and lashes normal. Conjunctiva and sclera are non-icteric and not injected. Cornea within normal limits. Periorbital areas with no swelling, redness, or edema. Neck: Trachea midline, no thyromegaly or masses palpated, and no cervical lymphadenopathy. Supple, full range of motion without nuchal rigidity, or vertebral point tenderness. No Meningismus. Chest/axilla: Normal chest wall appearance and motion. Nontender with no deformity. No lesions are appreciated. Cardiovascular: Regular rate and rhythm with a normal S1 and S2. Normal PMI, no JVD. No pulse deficits. Respiratory: Lungs have equal breath sounds bilaterally, clear to auscultation. No rales, rhonchi or wheezes noted. No increased work of breathing, no retractions or nasal flaring. 21:20 Abdomen/GI: Inspection: abdomen appears normal, Bowel sounds: normal, Palpation: abdomen is soft and non-tender, in all quadrants, Vital Signs: 21:19 BP 155 / 73; Pulse 110; Resp 19; Temp 99.4; Pulse Ox 96% on R/A; Pain 10/10; dd2 22:15 BP 115 / 58; Pulse 94; Resp 18 S; Pulse Ox 95% on R/A; ha1 23:20 BP 125 / 59; Pulse 96; Resp 18; Temp 98.9(O); Pulse Ox 100% on R/A; dd2 21:19 Pain Scale: Adult dd2 MDM: 21:10 Medical Screening Exam initiated dr5 23:15 Differential Diagnosis sepsis, flu, STEMI. Data reviewed: vital signs, nurses notes. dr5 Consideration of Admission/Observation Escalation of care including admission/observation considered. Escalation versus admission considered if patient had abnormal labs. Care significantly affected by the following Social Determinants of Health: Poor access to healthcare and/or lack of insurance, Poor access to transportation, Problems related to employment. Counseling: I had a detailed discussion with the patient and/or guardian regarding the historical points, exam findings, and any diagnostic results supporting the discharge/admit diagnosis, the presence of at least one elevated blood pressure reading (>120/80) during this emergency department visit, lab results, radiology results, the need for outpatient follow up, for definitive care, a family practitioner, to return to the emergency department if symptoms worsen or persist or if there are any questions or concerns that arise at home. ED course: Tamiflu prescribed for influenza. Recommended patient increase hydration. Recommend alternating Tylenol Motrin as needed for pain and fever. Lab results discussed with patient and printed for her to take to PCP if needed. All questions answered.. 04/13 21:10 Order name: Basic Metabolic Panel; Complete Time: 21:55 [facility] 04/13 21:10 Order name: CBC with Diff; Complete Time: 21:41 [facility] 04/13 21:10 Order name: NT PRO-BNP; Complete Time: 21:55 [facility] 04/13 21:10 Order name: PT-INR; Complete Time: 21:41 [facility] 04/13 21:10 Order name: Troponin HS; Complete Time: 21:55 [facility] 04/13 21:18 Order name: Lipase; Complete Time: 22:04 [facility] 04/13 22:21 Order name: SARS RAPID; Complete Time: 23:12 [facility] 04/13 22:21 Order name: Influenza Screen (a \T\ B); Complete Time: 23:12 dr5 04/13 22:21 Order name: Strep; Complete Time: 23:12 dr5 04/13 21:10 Order name: XRAY Chest (1 view); Complete Time: 21:50 dr5 04/13 21:10 Order name: Cardiac monitoring; Complete Time: 21:57 dr5 04/13 21:10 Order name: EKG - Nurse/Tech; Complete Time: 21:57 dr5 04/13 21:10 Order name: IV Saline Lock; Complete Time: 21:30 dr5 04/13 21:10 Order name: Labs collected and sent; Complete Time: 21:30 dr5 04/13 21:10 Order name: O2 Per Protocol; Complete Time: 21:30 dr5 04/13 21:10 Order name: O2 Sat Monitoring; Complete Time: 21:30 dr5 EC:54 Rate is 98 beats/min. Rhythm is regular. QRS Bro[place] is Normal. [place] interval is normal at dr5 138 msec. QRS interval is normal at 82 msec. QT interval is normal at 352 msec. Administered Medications: 21:50 Drug: Ondansetron IVP 4 mg IVP once; over 2 minutes Route: IVP; Site: left antecubital; ha1 21:52 Drug: morphine IVP or IV 2 mg IVP once over 4 mins Route: IVP; Infused Over: 4 mins; ha1 Site: left antecubital; 22:21 CANCELLED (Inappropriate at this time; Canceled ordered): GI Cocktail without dr5 - (maaloxsuspension 30 ml, lidocaine mucous membrane liquid 2 % 15 ml) PO once Disposition: 04/14 01:34 Co-signature as Attending Physician, Carlos Arita MD I agree with the assessment sp4 and plan of care. I reviewed the patient's care provided by the Advanced Practice Provider and agree with the diagnosis and treatment plan. Disposition Summary: 04/13/24 23:14 Discharge Ordered Notes: Location: Home dr5 Condition: Stable dr5 Diagnosis - Influenza due to identified novel influenza A virus dr5 Followup: dr5 - With: Emergency Department - When: As needed - Reason: Worsening of condition Followup: dr5 - With: Private Physician - When: 1 - 2 days - Reason: Recheck today's complaints, Continuance of care, Re-evaluation by your physician Discharge Instructions: - Discharge Summary Sheet dr5 - Influenza, Adult dr5 Forms: - Medication Reconciliation Form dr5 - Antibiotic Education dr5 - Patient Portal Instructions dr5 - Leadership Thank You Letter dr5 Prescriptions: - Zofran 4 mg Oral Tablet - take 1 tablet ORAL route every 12 hours As needed; 20 tablet; Refills: 0, dr5 Product Selection Permitted - Tamiflu 75 mg Oral capsule - take 1 tablet ORAL route every 12 hours for 5 days; 10 tablet; Refills: 0, dr5 Product Selection Permitted Signatures: Dispatcher [employer] [facility] Rut Gregorio RN RN ha1 Carlos Arita MD MD sp4 TRENT BARBER RN RN dd2 Lowell Caruso, REDEYE GUNNER-C REDEYE GUNNER-Cdr5 Corrections: (The following items were deleted from the chart) 04/13 21:10 21:10 Chest Single View+[email or web address] ordered. [facility] 22:21 21:55 GI Cocktail without - (Maalox PO 30 ml, Lidocaine Mucous Membrane 2 % 15 dr5 ml) PO once ordered. dr5
[2024-04-13 23:48] VITALS: BP 125/59; TEMP 98.9; O2SAT 100
--- NOTE | 2024-04-23 11:20 | EKG ---
Test Date: 2024-04-13 Test Time: 21:52:56 Director Of Managed Care: AF MEASUREMENT RESULTS: Intervals: Rate: 100 DE: 128 QRSD: 78 QT: 354 QTc: 456 [place]: P: 10 DE: 128 QRS: -39 T: 48 INTERPRETIVE STATEMENTS: Normal sinus rhythm Left axis deviation Possible Lateral infarct, age undetermined Abnormal ECG Compared to ECG 09/07/2023 08:41:06 Left-axis deviation now present Myocardial infarct finding now present Electronically Signed On 04-23-24 11:06:09 FINANCE ASSOCIATE by Miguelito Molina
--- NOTE | 2024-04-23 11:20 | EKG ---
Test Date: 2024-04-13 Test Time: 21:54:34 Lines Tender: AF MEASUREMENT RESULTS: Intervals: Rate: 98 ME: 138 QRSD: 82 QT: 352 QTc: 449 [place]: P: 13 ME: 138 QRS: -40 T: 27 INTERPRETIVE STATEMENTS: Normal sinus rhythm Left axis deviation Possible Lateral infarct, age undetermined Abnormal ECG Compared to ECG 04/13/2024 21:52:56 No significant changes Electronically Signed On 04-23-24 11:06:08 BLACK BELT by Miguelito Molina
== END 2024-04-13 23:26 | disposition home or self-care (01) ==
LOC: ER 21:07
DX: J10.1 Influenza due to other identified influenza virus with other respiratory manifestations (principal); Z11.52 Encounter for screening for COVID-19
CPT/HCPCS: 93005 ×2; 87070; 85025; 80048; 36415; 85610; 87081; 84484; 83690; 83880; 87804 ×2; 71045; 96375; 96374; 99285; 87811; J2270; J2405